=== PATIENT | female | born 1960 | race African-American/Black ===

== ENCOUNTER 2021-02-20 19:43 | Emergency (ER) | payer OTHER ==
[~2021-02-20] VITALS: Ht 160 cm; Wt 72.6 kg
[2021-02-20 19:45] VITALS: BP 180/97
[2021-02-20] MEDS ORDERED: ACYCLOVIR 400400 MG PO (20:55)
== END 2021-02-20 21:15 | disposition home or self-care (01) ==
LOC: ER 19:43
DX: B02.8 Zoster with other complications (principal); I10 Essential (primary) hypertension; E11.9 Type 2 diabetes mellitus without complications; J45.909 Unspecified asthma, uncomplicated; F17.200 Nicotine dependence, unspecified, uncomplicated; Z72.89 Other problems related to lifestyle